=== PATIENT | female | born 1995 | race Two or more races ===

== ENCOUNTER 2018-02-28 15:13 | Emergency (ER) | payer MEDICAID ==
[~2018-02-28] VITALS: Ht 157.5 cm; Wt 54.5 kg
[~2018-02-28 15:13] MED LIST: ACET325T14 PO; IBUP-1223 PO; OXYC-302 PO; PREN1TAB52 PO; SENN-52 PO
[2018-02-28 15:53] LABS: BASOPHILS # (AUTO) 0.03 x10^3/uL (0-0.3); BASOPHILS % (AUTO) 1 % (0-1); EOSINOPHILS # (AUTO) 0.07 x10^3/uL (0-0.8); EOSINOPHILS % (AUTO) 1 % (1-7); LYMPHOCYTES # (AUTO) 1.87 x10^3/uL (1-6.1); LYMPHOCYTES % (AUTO) 35 % (22-44); MD NO; MEAN CORPUSCULAR HEMOGLOBIN 31.6 pg (27.0-34.8); MEAN CORPUSCULAR HGB CONC 34.1 g/dL (32.4-35.8); MEAN CORPUSCULAR VOLUME 92.6 fL (80-100); MEAN PLATELET VOLUME 8.3 fL (7.4-10.4); MONOCYTES # (AUTO) 0.44 x10^3/uL (0-1.4); MONOCYTES % (AUTO) 8 % (2-9); NEUTROPHILS % (AUTO) 55 % (42-75); PLATELET COUNT 271 x10^3/uL (130-400); RED BLOOD COUNT 4.34 x10^6/uL (3.82-5.3); RED CELL DISTRIBUTION WIDTH 12.6 % (9.6-15.2)
[2018-02-28 16:06] LABS: ALANINE AMINOTRANSFERASE 19 U/L (12-78); ALBUMIN 4.1 g/dL (3.4-5.0); ANION GAP 7 mmol/L (5-15); CHLORIDE 108 mmol/L (98-107)
[2018-02-28 16:11] LABS: ALKALINE PHOSPHATASE 56 U/L (45-117); BILIRUBIN,TOTAL 0.4 mg/dL (0.2-1.0); TOTAL PROTEIN 7.9 g/dL (6.4-8.2)
[2018-02-28 17:08] LABS: MICROSCOPIC AUTO
[2018-02-28 17:12] LABS: CULTURE INDICATED? YES
[2018-02-28 18:06] VITALS: BP 113/76
== END 2018-02-28 18:08 | disposition home or self-care (01) ==
LOC: ED 17:40
DX: N93.8 Other specified abnormal uterine and vaginal bleeding (principal); R30.0 Dysuria
CPT/HCPCS: 36415; 80053; 81001; 84702; 85025; 86901; 87086; 99284

== ENCOUNTER 2018-08-03 21:03 | Emergency (ER) | payer MEDICAID ==
[~2018-08-03] VITALS: Ht 157.5 cm; Wt 54.9 kg
--- NOTE | 2018-08-03 21:56 | NUR ---
THIS IS A 22 YO FEMALE WHO PRESENTS TO THE ER C/O LUQ/LLQ PAIN X 1 WEEK. PT DENIES VB. PT STATES SHE IS APPROX 16 WEEKS . PT AO X 4. PT REPORTS MX ISSUES WITH UTI'S AND HAS RECENTLY BEEN PUT ON A NEW ABX. PT TO US AT THIS TIME.
--- NOTE | 2018-08-03 21:59 | NUR ---
RECIEVED REPORT FROM KILEY PINEDA.
[2018-08-03 22:00] LABS: BASOPHILS # (AUTO) 0.04 x10^3/uL (0-0.3); BASOPHILS % (AUTO) 1 % (0-1); EOSINOPHILS # (AUTO) 0.07 x10^3/uL (0-0.8); EOSINOPHILS % (AUTO) 1 % (1-7); LYMPHOCYTES # (AUTO) 1.61 x10^3/uL (1-6.1); LYMPHOCYTES % (AUTO) 23 % (22-44); MD NO; MEAN CORPUSCULAR HEMOGLOBIN 31.6 pg (27.0-34.8); MEAN CORPUSCULAR HGB CONC 34.6 g/dL (32.4-35.8); MEAN CORPUSCULAR VOLUME 91.3 fL (80-100); MONOCYTES # (AUTO) 0.44 x10^3/uL (0-1.4); MONOCYTES % (AUTO) 6 % (2-9); NEUTROPHILS # (AUTO) 4.88 x10^3/uL (1.8-8.0); NEUTROPHILS % (AUTO) 69 % (42-75); PLATELET COUNT 252 x10^3/uL (130-400); RED BLOOD COUNT 3.78 x10^6/uL (3.82-5.3); RED CELL DISTRIBUTION WIDTH 13.2 % (9.6-15.2)
--- NOTE | 2018-08-03 22:02 | NUR ---
REPORT TO EDWIN GUIDRY WHO ASSUMED CARE OF PT AT THIS TIME.
[2018-08-03 22:04] LABS: ALANINE AMINOTRANSFERASE 15 U/L (12-78); ALBUMIN 3.5 g/dL (3.4-5.0); ANION GAP 5 mmol/L (5-15); CALCIUM 8.6 mg/dL (8.5-10.1); CHLORIDE 107 mmol/L (98-107)
[2018-08-03 22:06] LABS: ALKALINE PHOSPHATASE 45 U/L (45-117); BILIRUBIN,TOTAL 0.3 mg/dL (0.2-1.0); CREATININE 0.66 mg/dL (0.55-1.02)
--- NOTE | 2018-08-03 23:03 | NUR ---
PT BACK FORM US. URINE SENT TO LAB. PT RESTING CALMLY IN BED WITH FAMILY AT BEDSIDE. CALL LIGHT WITHIN REACH.
[2018-08-03 23:09] LABS: MICROSCOPIC AUTO
[2018-08-03 23:10] LABS: CULTURE INDICATED? NO
--- NOTE | 2018-08-04 01:00 | NUR ---
REPORT RECEIVED AND CARE ASSUMED. PT STATES CONTINUED PAIN TO L SIDE. ERP AWARE AND PT TO RECEIVE TYLENOL AND LIDODERM PATCH. PT AGREES TO POC. CALL LIGHT IN REACH.
[2018-08-04] MEDS ORDERED: LIDODERM 5% PATCH TD ONE ×2 (01:22→01:30)
[2018-08-04] MEDS ORDERED: ACETAMINOPHEN 500 MG TABLET ONE (01:22)
[2018-08-04] MEDS ORDERED: OMNIPAQUE 350 MG/ML, 100ML BOTTLE ONE (01:29)
[2018-08-04] MEDS ORDERED: ACETAMINOPHEN 500 MG TABLET PO ONE (01:30)
[2018-08-04 02:00] VITALS: BP 99/42
== END 2018-08-04 02:02 | disposition home or self-care (01) ==
LOC: ED 23:47
DX: O26.892 Other specified pregnancy related conditions, second trimester (principal); R07.81 Pleurodynia; Z3A.16 16 weeks gestation of pregnancy; Z90.89 Acquired absence of other organs
CPT/HCPCS: 36415; 71045; 71275; 76700; 76805; 80053; 81001; 85025; 85379; 93005; 99284; Q9967

== ENCOUNTER 2019-01-07 16:32 | Observation (INO) | payer SELFPAY ==
[~2019-01-07] VITALS: Ht 157.5 cm; Wt 65.0 kg
[2019-01-07] MEDS ORDERED: ONDANSETRON 2MG/ML, 2ML ONE (16:55)
[2019-01-07] MEDS ORDERED: LACTATED RINGERS 1,000 ML IVBOLUS ONE (17:00)
[2019-01-07] MEDS ORDERED: ONDANSETRON 2MG/ML, 2ML IVPush PRN (17:00)
[2019-01-07] MEDS: D5%-LACTATED RINGERS 1,000 ML IV SCH ×2 (17:24→18:24)
[2019-01-10] MEDS ORDERED: IBUP-1222 PO (14:30)
[2019-01-10] MEDS ORDERED: HYDR-3240 PO (14:30)
[2019-01-10] MEDS ORDERED: SENN-92 PO (14:30)
[2019-01-28] MEDS ORDERED: NONE PER PT (07:54)
== END 2019-01-07 18:20 | disposition home or self-care (01) ==
LOC: LDOP 16:32 → OBSVTOIN 17:00 → INTOOBSV 17:00 → LDIP 17:00
PROVIDERS: ADMIT Obstetrics & Gynecology; ATTEND Obstetrics & Gynecology
DX: O21.9 Vomiting of pregnancy, unspecified (principal); O26.893 Other specified pregnancy related conditions, third trimester; R10.9 Unspecified abdominal pain; Z3A.38 38 weeks gestation of pregnancy
CPT/HCPCS: 59025; 96360; 99211; G0378; J7120; J7121; G0463

== ENCOUNTER 2019-01-08 12:28 | Inpatient (IN) | payer OTHER ==
[~2019-01-08] VITALS: Ht 157.5 cm; Wt 65.5 kg
[2019-01-10 07:45] VITALS: BP 116/77
== END 2019-01-10 16:10 | disposition home or self-care (01) | DRG 806 ==
LOC: LDOP 12:28 → LDIP 14:47 → 2NW 22:25
PROVIDERS: ADMIT Obstetrics & Gynecology; ATTEND Obstetrics & Gynecology
PROC: 10E0XZZ Delivery of Products of Conception, External Approach (ICD-10-PCS; principal; 2019-01-08)
DX: O69.1XX0 Labor and delivery complicated by cord around neck, with compression, not applicable or unspecified (principal); O26.62 Liver and biliary tract disorders in childbirth; Z37.0 Single live birth; O99.62 Diseases of the digestive system complicating childbirth; O99.02 Anemia complicating childbirth; K80.70 Calculus of gallbladder and bile duct without cholecystitis without obstruction; D50.9 Iron deficiency anemia, unspecified; O62.3 Precipitate labor; Z3A.37 37 weeks gestation of pregnancy
CPT/HCPCS: 36415; J7121; 76705; 80053; 80076; 81001; 82248; 84550; 85025; 86850; 86900; G0378; J2590; J7120